=== PATIENT | male | born 1965 ===

== ENCOUNTER 2018-01-08 15:37 | Emergency (ER) | payer BC ==
--- NOTE | 2018-01-08 17:05 | RAD ---
Indication: LEFT chest pain and LEFT hand numbness. Comparison: June 21, 2015 CT abdomen. June 21, 2015 chest radiograph. Technique: Upright AP 1641 hours Report: Elevated lung volumes and both diffuse mild prominence of the interstitial markings and patchy rarefaction of the mid to upper lung zone interstitial markings. No focal pulmonary lesion, compelling alveolar consolidation, pleural effusion, pneumothorax. The heart, pulmonary vasculature, and mediastinal contours are unremarkable. IMPRESSION: Stigmata of obstructive lung disease. No acute pulmonary or cardiac process evident.
[2018-01-08 17:25] VITALS: BP 0/0
--- NOTE | 2018-01-10 11:48 | ED ---
Houston Ho Angela, scribed for Jaden Monroe MD on 01/08/18 at 1638 . HPI Chest Pain - HPI Summary HPI Summary: This pt is a 52 y/o male presenting to [facility] c/o chest pain today. Pt reports his chest pain is sharp and nonradiating. He additionally notes left hand numbness and pleuritic chest pain. His pain is aggravated with deep breathing. 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 Denies neck pain, headache, blurry vision, SOB, lightheadedness. He notes his chest currently is better than at onset. Pt had an episode in the past with numbness and tingling of left arm and leg that resolved after 10 seconds. - History of Current Complaint Chief Complaint: EDChestPainROMI Time Seen by Provider: 01/08/18 16:23 Hx Obtained From: Patient Onset/Duration: Started Hours Ago, Atraumatic, Still Present Timing: Lasting Hours Initial Severity: Severe Current Severity: Moderate Pain Intensity: 5 Pain Scale Used: 0-10 Numeric Chest Pain Location: Diffuse Chest Pain Radiates: No Character: Sharp/Stabbing - sharp Aggravating Factor(s): Deep Breaths Alleviating Factor(s): Nothing Associated Signs and Symptoms: Positive: Chest Pain, Other: - NEG: neck pain, blurry vision. Negative: Vision Changes, Headaches, Shortness of Breath, Fever , Lightheadedness - Additional Pertinent History Primary Care Physician: [facility] - Allergy/Home Medications Allergies/Adverse Reactions: Allergies Allergy/AdvReac Type Severity Reaction Status Date / Time No Known Allergies Allergy Verified 06/21/15 02:28 PMH/Surg Hx/FS Hx/Imm Hx Endocrine/Hematology History: Denies: Hx Diabetes Cardiovascular History: Denies: Hx Congestive Heart Failure, Hx Hypertension History: Denies: Hx Renal Disease Infectious Disease History: No Infectious Disease History: Denies: Traveled Outside the [place] in Last 30 Days - Family History Known Family History: Positive: Hypertension - Father - Social History Alcohol Use: None Substance Use Type: Reports: None Smoking Status (MU): Never Smoked Tobacco Have You Smoked in the Last Year: No Review of Systems Negative: Fever, Chills Negative: Blurred Vision Positive: Chest Pain Negative: Shortness Of Breath Negative: Other - neck pain Neurological: Other - NEG: lightheadedness Positive: Numbness - in left hand. Negative: Headache All Other Systems Reviewed And Are Negative: Yes Physical Exam - Summary Physical Exam Summary: VITAL SIGNS: Reviewed. GENERAL: Patient is a well-developed and nourished male who is lying comfortable in the stretcher. Patient is not in any acute respiratory distress. HEAD AND FACE: No signs of trauma. No ecchymosis, hematomas or skull depressions. No sinus tenderness. EYES: PERRLA, EOMI x 2, No injected conjunctiva, no nystagmus. EARS: Hearing grossly intact. Ear canals and tympanic membranes are within normal limits. MOUTH: Oropharynx within normal limits. NECK: Supple, trachea is midline, no adenopathy, no JVD, no carotid bruit, no c- spine tenderness, neck with full ROM. CHEST: Symmetric, no tenderness at palpation LUNGS: Clear to auscultation bilaterally. No wheezing or crackles. CVS: Regular rate and rhythm, S1 and S2 present, no murmurs or gallops appreciated. ABDOMEN: Soft, non-tender. No signs of distention. No rebound no guarding, and no masses palpated. Bowel sounds are normal. EXTREMITIES: FROM in all major joints, no edema, no cyanosis or clubbing. NEURO: Alert and oriented x 3. No acute neurological deficits. Speech is normal and follows commands. SKIN: Dry and warm Triage Information Reviewed: Yes Vital Signs On Initial Exam: Initial Vitals Temp Pulse Resp BP Pulse Ox 97.5 F 81 20 150/111 98 01/08/18 15:44 01/08/18 15:44 01/08/18 15:44 01/08/18 15:44 01/08/18 15:44 Vital Signs Reviewed: Yes Diagnostics - Vital Signs Vital Signs Temp Pulse Resp BP Pulse Ox 01/08/18 15:44 97.5 F 81 20 150/111 98 - Laboratory Lab Statement: Any lab studies that have been ordered have been reviewed, and results considered in the medical decision making process. - Radiology Chest XR Xray Interpretation: No Acute Changes - IMPRESSION: Stigmata of obstructive lung disease. No acute pulmonary or cardiac process evident. Dr. Monroe has reviewed this radiology report. Radiology Interpretation Completed By: Radiologist - EKG 15:44 Cardiac Rate: NL EKG Rhythm: Sinus Rhythm - at 72 bpm EKG Interpretation: No ST elevations. Re-Evaluation - Re-Evaluation First Eval Re-Evaluation Time: 17:09 Comment: Pt is declining IV and lab work. He would like to leave against medical advice. Chest Pain Course/Dx - Course Assessment/Plan: This pt is a 52 y/o male presenting to [facility] c/o chest pain today. Pt reports his chest pain is sharp and nonradiating. He additionally notes left hand numbness and pleuritic chest pain. His pain is aggravated with deep breathing. 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 Denies neck pain, headache, blurry vision, SOB, lightheadedness. He notes his chest currently is better than at onset. Pt had an episode in the past with numbness and tingling of left arm and leg that resolved after 10 seconds. Chest XR shows stigmata of obstructive lung disease. No acute pulmonary or cardiac process evident. EKG shows normal sinus rhythm without ST elevations. Pt reports his chest pain has completely resolved and is declining IV and blood work. Pt declines any further work up as he is chest pain free and his numbness has also resolved. Pt would like to sign out against medical advice. I discussed the benefits and risks of signing against medical advice. Pt is alert and oriented x3 and is capable of making his own decisions. Pt understands the risks of signing AMA. Therefore the pt signed out the AMA form. There were no further complaints or concerns. He is instructed to return to the ED for any worsening or new symptoms. Pt is hemodynamically stable, alert and oriented x3. - Diagnoses Provider Diagnoses: Chest pain Discharge - Sign-Out/Discharge Documenting (check all that apply): Discharge - against medical advice - Discharge Plan Condition: Stable Disposition: AGAINST MEDICAL ADVICE Referrals: [facility], [Primary Care Provider] - The documentation as recorded by the Houston dewitt Angela accurately reflects the service I personally performed and the decisions made by me, Jaden Monroe MD.
== END 2018-01-08 17:15 | disposition left against medical advice (07) ==
LOC: ED 15:37
DX: R07.9 Chest pain, unspecified (principal)
CPT/HCPCS: 71045; 93005; 99282